=== PATIENT | male | born 1965 | race Caucasian/White ===

== ENCOUNTER 2020-07-22 08:46 | Emergency (ER) | payer OTHER ==
[~2020-07-22 08:46] MED LIST: CIPRO500 MG PO
[2020-07-22 09:26] LABS: HEMOGLOBIN 15.5 gm/dl (14.0-17.5); RED BLOOD COUNT 5.17 M/UL (4.20-5.50)
[2020-07-22 10:02] LABS: BUN/CREATININE RATIO 13 (0-10)
[2020-07-22] MEDS ORDERED: LISINOPRIL20 MG PO (13:54)
== END 2020-07-22 14:05 | disposition home or self-care (01) ==
LOC: ER1 08:46
PROVIDERS: Emergency Medicine
DX: I10 Essential (primary) hypertension (principal); R11.0 Nausea; Z79.899 Other long term (current) drug therapy
CPT/HCPCS: 71045; 80053; 81001; 82550; 82553; 83735; 83874; 84484; 85025; 85610; 85730; 93005; 96374; 99285; J2405